=== PATIENT | female | born 1965 | race Caucasian/White ===

== ENCOUNTER → 2019-09-22 12:26 | Outpatient (BNVA) | payer MEDICARE, MEDICAID, SELFPAY | PROVIDERS: Family Provider Nurse Practitioner Family; PCP Nurse Practitioner Family; Visit Provider Nurse Practitioner Family | DX: N39.0 Urinary tract infection, site not specified (principal); M54.16 Radiculopathy, lumbar region | CPT/HCPCS: 81001; 81003; 87086 ==

== ENCOUNTER → 2021-10-16 11:36 | Outpatient (BNVA) | payer MEDICARE, MEDICAID, SELFPAY | PROVIDERS: Family Provider Nurse Practitioner Family; PCP Nurse Practitioner Family; Visit Provider Nurse Practitioner | DX: N39.0 Urinary tract infection, site not specified (principal) | CPT/HCPCS: 81000 ==

== ENCOUNTER → 2022-10-02 16:41 | Outpatient (BNVA) | payer MEDICARE, MEDICAID, SELFPAY | PROVIDERS: Family Provider Nurse Practitioner Family; PCP Nurse Practitioner Family; Visit Provider Nurse Practitioner Family | DX: N39.0 Urinary tract infection, site not specified (principal) | CPT/HCPCS: 81000; 87086 ==

== ENCOUNTER 2023-04-04 11:17 | Observation (INO) | payer MEDICARE, MEDICAID, SELFPAY ==
--- NOTE | 2023-04-02 11:35 | P.ANESASSM_ITS ---
Pre-Anesthetic Assessment Height/Weight: Height 1.57 m Operation Date: 04/04/23 07:00 Proposed Procedures p Anterior colporrhaphy augmented with allograft, posterior colporrhaphy 11605,N81.4,N81.6(Not Applicable) - Negro Isaac MD s Posterior Repair Posterior Colporrhaphy(Not Applicable) - Negro Isaac MD Familial anesthetic complications: none Was Beta Lily taken within 24 hours: N/A Was Clonidine taken within 24 hours: N/A Social Tobacco and No alcohol Exam alert, oriented x 3 and regular rate & rhythm Airway Submandibular: within normal limits Cervical ROM: within normal limits Mallampati: Class II Dentition: full Pulmonary Chronic Obstructive Pulmonary Disease Metabolic Diabetes Mellitus and Morbid Obesity [facility] [place] Lower Back Pain and Osteoarthritis/DJD Anesthetic Plan ASA status: 3 Anesthesia: General Medications/Allergies Home Medications Medication Instructions Recorded Confirmed Last Taken Type duloxetine 60 mg capsule,delayed 60 mg PO .COMPLEX 09/22/19 04/02/23 04/02/23 History release (Cymbalta) insulin detemir U-100 100 unit/mL 100 unit SUBCUT .COMPLEX 09/22/19 04/02/23 04/01/23 History subcutaneous solution (Levemir U-100 Insulin) metformin 1,000 mg tablet,extended 1,000 mg PO BID 09/22/19 04/02/23 04/02/23 History release 24hr pioglitazone 15 mg tablet 15 mg PO DAILY 02/01/22 04/02/23 04/02/23 History fluticasone propionate 50 2 spray intranasal DAILY #16 grams 11/15/22 04/02/23 04/02/23 Rx mcg/actuation nasal spray,suspension (Flonase Allergy Relief) semaglutide 3 mg tablet (Rybelsus) 3 mg PO DAILY 01/17/23 04/02/23 04/02/23 Hist ory benzonatate 100 mg capsule 100 mg PO TID PRN cough #15 caps 02/15/23 04/02/23 Unknown Rx Allergies Allergy/AdvReac Type Severity Reaction Status Date / Time Sulfa (Sulfonamide AdvReac body aches Verified 02/15/23 12:58 Antibiotics) [facility] Anesthesia Surgical History H/O section H/O: hysterectomy Hx of cholecystectomy Status post creation of urethral sling by suprapubic approach Family History Father Hypertension Mother Hypertension Family/Other No problems noted. Denies family history of Colon cancer Ovarian cancer Diabetes Heart disease Breast cancer Uterine cancer Thyroid disease Stroke Female Reproductive History Spontaneous abortions: No Data Anesthesia Cardiac Studies: No Data to Display
[2023-04-04] VITALS (12 sets, daily range): BP systolic 108–174; BP diastolic 64–97; PULSE 67–107; RESP 15–18; TEMP 36.1–36.9; O2SAT 93–98; BMI 28.3
[2023-04-04] MEDS: sodium chloride 0.9% 1,000 ML 30 ML IV (07:48)
[2023-04-04 07:49] LABS: Basophils # 0.1 10^3/uL (0.0-0.1); Basophils % 1.7 %; Eosinophils # 0.3 10^3/uL (0.0-0.8); Eosinophils % 5.6 %; Hematocrit 41.8 % (37.0-47.0); Lymphocytes # 2.2 10^3/uL (0.8-4.8); Lymphocytes % 35.9 %; Mean Corpuscular HGB Conc 33.5 g/dL (30.0-36.0); Mean Corpuscular Hemoglobin 28.7 pg (28.0-34.0); Mean Corpuscular Volume 85.7 fl (81-99); Mean Platelet Volume 8.8 fL (7.4-10.4); Monocytes # 0.5 10^3/uL (0.2-0.9); Monocytes % 7.9 %; Neutrophils # 2.92 10^3/uL (1.8-7.7); Neutrophils % 48.4 %; Nucleated Red Blood Cells % 0 %; Platelet Count 309 10^3/cmm (130-400); Red Blood Count 4.88 10^6/uL (4.1-5.3); Red Cell Distribution Width 13.1 % (12.1-15.1)
[2023-04-04] MEDS: scopolamine 1.5 Patch 1 PATCH TRANSDERMA (07:49)
[2023-04-04 07:58] LABS: Add Urine Microscopic? YES; Bilirubin Urine Neg (Negative); Blood Urine Neg (Negative); Glucose Urine UA Norm (Normal); Ketones Urine Negative (Negative); Leukocyte Esterase Urine 2+ (Negative); Nitrate Urine Negative (Negative); Protein Urine Neg (Negative); Specific Gravity, Urine 1.025 (1.005-1.030); Urine Appearance Clear (CLEAR); Urine Color Yellow (Yellow); Urobilinogen Urine Norm (Negative); pH Urine 6 (5-7)
[2023-04-04 08:06] LABS: Alanine Aminotransferase 16 U/L (0-33); Albumin Level 4.3 g/dL (3.5-5.2); Alkaline Phosphatase 61 U/L (35-105); Anion Gap 13.2 (5-19); Aspartate Amino Transferase 16 U/L (0-32); Blood Urea Nitrogen 11 mg/dL (6-20); Calcium 9.6 mg/dL (8.5-10.5); Carbon Dioxide 28 mmol/L (22-29); Chloride 103 mmol/L (98-107); Globulin 2.5 g/dL (1.3-4.6); Glucose 144 mg/dL (65-115); Osmolality Calculated 292 mOsm/kg (285-295); Potassium 4.2 mmol/L (3.5-5.1); Sodium 140 mmol/L (136-145); Total Bilirubin 0.3 mg/dL (0.15-1.2); Total Protein 6.8 g/dL (6.6-8.7)
[2023-04-04 08:09] LABS: Add Urine Culture? No; Bacteria Urine TRACE /hpf; RBC Urine 0-4 /hpf (0-2); Renal Epithelial Cells Urine 0-4 /hpf; Squamous Epithelial Cell Urine 0-4 /hpf (0-5)
--- NOTE | 2023-04-04 08:50 | W.PM.OPSUD ---
Surgery/Procedure H&P Update DATE OF PROCEDURE: April 04, 2023 DATE H&P PERFORMED: 04/02/23 H&P UPDATE INFORMATION: I have reviewed H&P completed within last 30 days, I have examined patient prior to procedure and No changes to prior documentation PREOP DIAGNOSIS: Cystocele, mixed urinary incontinence PLANNED PROCEDURE: Operation Date: 04/04/23 09:00 Proposed Procedures p Anterior colporrhaphy augmented with allograft, posterior colporrhaphy 23669,N81.4,N81.6(Not Applicable) - Negro Isaac MD s Posterior Repair Posterior Colporrhaphy(Not Applicable) - Negro Isaac MD
[2023-04-04] MEDS: ceFOXitin 2,000 MG in sodium chloride 0.9% (plus) 50 ML 100 MG IV (09:26)
[2023-04-04] MEDS: lidocaine-epi 2% 20 mL INJ INJECTION (10:00)
--- NOTE | 2023-04-04 10:48 | P.ANESUD_ITS ---
Pre-Anesthetic Update Pre-Anesthetic Assessment: Date of Surgery/Procedure: 04/04/23 Preop Laura gnosis: Cystocele, mixed urinary incontinence Proposed Procedure: Operation Date: 04/04/23 09:00 Proposed Procedures p Anterior colporrhaphy augmented with allograft, posterior colporrhaphy 99953,N81.4,N81.6(Not Applicable) - Negro Isaac MD s Posterior Repair Posterior Colporrhaphy(Not Applicable) - Negro Isaac MD Any changes to Pre-Anesthetic Assessment?: No Last Intake: Intake Last Liquid Date 04/03/23 Last Liquid Time 21:00 Last Solid Date 04/03/23 Last Solid Time 21:00 Labs Last 48hrs: Short CBC 04/04/23 Range/Units 07:39 WBC 6.0 (4.0-10.0) 10^3/ uL Hgb 14.0 (11.5-15.3) g/dL Hct 41.8 (37.0-47.0) % MCV 85.7 (81-99) fl Plt Count 309 (130-400) 10^3/c mm Neut % (Auto) 48.4 % Neut # (Auto) 2.92 (1.8-7.7) 10^3/u L BMP 04/04/23 07:39 Sodium 140 Potassium 4.2 Chloride 103 Carbon Dioxide 28 BUN 11 Creatinine 0.6 Glucose 144 H Calcium 9.6 Liver Function 04/04/23 Range/Units 07:39 Total Bilirubin 0.3 (0.15-1.2) mg/dL AST 16 (0-32) U/L ALT 16 (0-33) U/L Alkaline Phosphata se 61 (35-105) U/L Albumin 4.3 (3.5-5.2) g/dL Urine 04/04/23 Range/Units 07:30 Urine Color Yellow (Yellow) Urine Appearance Clear (CLEAR) Urine pH 6 (5-7) Ur Specific Gravit y 1.025 (1.005-1.030) Urine Protein Neg (Negative) Urine Glucose (UA) Norm (Normal) Urine Ketones Negative (Negative) Urine Nitrate Negative (Negative) Urine Bilirubin Neg (Negative) Ur Leukocyte Jeimy ase 2+ H (Negative) Urine RBC 0-4 H (0-2) /hpf Urine WBC 5-10 H (0-5) /hpf Ur Renal Epithelia l Cell 0-4 /hpf Blood Bank 04/04/23 07:39 Blood Type O Negative Rho(D) Type Negative Antibody Screen Negative Vitals: Temperature 97.4 F L 04/04/23 07:25 Temperature Source Temporal Artery S can 04/04/23 07:25 Pulse Rate 67 04/04/23 07:25 Respiratory Rate 16 04/04/23 07:25 Blood Pressure 159/92 04/04/23 07:25 Blood Pressure Kiana n 114 04/04/23 07:25 Pulse Oximetry 98 04/04/23 07:25 Oxygen Delivery Me thod Room Air 04/04/23 07:28 Exam: Pre-Anes Outpt Exam: alert, oriented x 3, clear to auscultation bilaterally and regular rate & rhythm Cardiac Studies: No Data to Display
[2023-04-04] MEDS: estrogens Conjugated Cream 30 gm 1 APPLIC VAGINAL (10:58)
--- NOTE | 2023-04-04 11:06 | PM.OP ---
Operative Report Date of procedure: April 04, 2023 Pre-op diagnosis: Preop Diagnosis Cystocele, mixed urinary incontinence Post-op diagnosis: Same as above Procedure done: Anterior colporrhaphy augmented with allograft. Single incision mid urethral sling. Cystoscopy Surgeon: Negro Isaac MD Estimated blood loss (mL): 25 IV fluids (mL): 1,000 Urine output (mL): 300 Procedure: After obtaining informed consent, the patient was taken to the operating room and placed in the supine position, given general anesthesia, and prepped and draped in sterile fashion. The abdomen, vulva and vagina were prepped and draped in a sterile manner. A time out procedure was performed. The anterior vaginal mucosa beneath the midurethra was infiltrated with 0.5% Marcaine with epinephrine. A vertical midline incision was made beneath the midurethra, nearly 1.5 cm length. Careful submucosal dissection was performed bilaterally up to the interior portion of the inferior pubic ramus. The insertion of adductor longus tendon on the patient?s pubic ramus was identified as reference land preston. Palpated the notch along the internal edge of ischiopubic ramus where the adductor longus tendon and the inferior pubic ramus meet. The Altis single incision sling (SIS) was selected. Then the needle of the SIS inserted aiming at the location of this notch. One of the integrated self-fixating tips place onto the needle by sliding it over the end of the needle. The needle/sling assembly was inserted toward the location of identified reference notch making sure that the flat of the handle is perpendicular to the desired path. The needle was tracked along the posterior surface of the ischiopubic ramus until the midline preston on the mesh is approximately at the midline position under the urethra. The needle was removed and the same was repeated on the contralateral side until the appropriate sling tension under the urethra was achieved ensuring that the mesh lays flat. The needle was removed and vaginal incision was closed in a running interlocking fashion with 2-0 Vicryl. The vaginal mucosa was then injected in the midline with normal saline. The vaginal mucosa was scored in the midline with the Bovie approximately 1 cm medial to the urethral meatus to 1 cm distal to the vaginal cuff/cervix. This vaginal mucosa was then undermined and then incised in the midline with the Metzenbaum scissors. The lateral aspects of the vaginal mucosa were then grasped with the Allis clamps and the vaginal mucosa was then dissected off the underlying fascia with the Metzenbaum scissors. Again, there was noted to be quite a bit of oozing at the incision, which was controlled with cautery. After adequate dissection was performed, bilaterally. A Coloplast allograft was modified at time of application to fit spacea, 3 x 3 cm piece. The Coloplast allograft was placed in front of cystocele ready to be implanted facing the vagina mucosa. Suture is placed at distal end of graft and placed towards vaginal cuff. Final suture is placed on proximal portion of the graft to complete the placement overlying the bladder. Then Interrupted vertical mattress sutures of 0 Vicryl were used to elevate the cystocele superiorly. The excessive vaginal mucosa was then trimmed with the Metzenbaum scissors and the vaginal mucosa was then reapproximated in the running interlocking fashion with 2-0 Vicryl. Then the Palafox catheter was removed and cystoscope was inserted. The bladder was filled with sterile water. Complete evaluation of the bladder mucosa was performed noting no lacerations, dimpling, tears, bleeding of the mucosa or muscular layers. Both ureteral orifices were identified. Prompt excretion of urine from both ureteral orifices was noted. Cystoscope was withdrawn. The Palafox catheter was replaced. Excellent hemostasis was obtained. A vaginal pack is placed overnight as postoperative support for the vaginal tissues after graft placement and closure of vaginal incisions. Sponge, lap, needle, and instrument counts were correct times three. The patient was taken to the recovery room, awake and in stable condition.
[2023-04-04] MEDS: ketorolac 30 mg/mL INJ IVP ×2 (12:32→18:47)
[2023-04-04] MEDS: HYDROcodone-acetaminophen 5-325 mg Tablet PO ×2 (14:20→19:44)
--- NOTE | 2023-04-04 14:52 | ANE.PACU2 ---
Inpatient post-anesthesia follow up: Airway intact: Yes Vital signs: Temperature 97 F Pulse Rate 86 Respiratory Rate 16 Blood Pressure 146/66 Pulse Oximetry 93 Oxygen Delivery Me thod Room Air Oxygen Flow Rate Fraction of Inspir ed Oxygen Hydration adequate: Yes Nausea and vomiting: No Pain level: 2 Mental status: Baseline
[2023-04-04] MEDS: dextrose 5%-lactated ringers 1,000 ML 125 ML IV (16:24)
[2023-04-04] MEDS: metformin XR 500 MG Tablet 1000 MG PO (17:45)
[2023-04-04] MEDS: docusate sodium 100 mg Capsule PO (17:45)
[2023-04-04] MEDS: phenazopyridine 100 mg Tablet 200 MG PO (17:45)
[2023-04-04] MEDS: simethicone 80 mg Chew PO (21:22)
[2023-04-04] MEDS: insulin glargine 100 units/1 mL 50 UNIT SUBCUT (21:42)
[2023-04-05] MEDS: ketorolac 30 mg/mL INJ IVP ×2 (00:42→06:51)
[2023-04-05] MEDS: HYDROcodone-acetaminophen 5-325 mg Tablet PO ×2 (04:58→11:40)
[2023-04-05] MEDS: simethicone 80 mg Chew PO (04:58)
[2023-04-05 05:00] VITALS: BP 128/74; PULSE 82; RESP 16; TEMP 36.5; O2SAT 94
--- NOTE | 2023-04-05 05:06 | PC.NURSE ---
Vaginal packing removed, patient tolerated well, small amount of blood on gauze.
[2023-04-05 05:13] LABS: Hematocrit 33.5 % (37.0-47.0); Hemoglobin 11.4 g/dL (11.5-15.3); Mean Corpuscular Hemoglobin 28.8 pg (28.0-34.0); Mean Corpuscular Volume 84.6 fl (81-99); Mean Platelet Volume 9.2 fL (7.4-10.4); Platelet Count 268 10^3/cmm (130-400); Red Blood Count 3.96 10^6/uL (4.1-5.3); Red Cell Distribution Width 12.8 % (12.1-15.1); White Blood Count 12.9 10^3/uL (4.0-10.0)
[2023-04-05 05:34] LABS: Glucose Point of Care 166 mg/dL (70-110)
[2023-04-05 08:48] VITALS: BP 128/72; PULSE 72; RESP 16; TEMP 36.7; O2SAT 97
[2023-04-05] MEDS: duloxetine 60 mg Capsule PO (08:59)
[2023-04-05] MEDS: metformin XR 500 MG Tablet 1000 MG PO (08:59)
[2023-04-05] MEDS: docusate sodium 100 mg Capsule PO (08:59)
[2023-04-05] MEDS: insulin glargine 100 units/1 mL 50 UNIT SUBCUT (09:10)
--- NOTE | 2023-04-05 11:38 | P.DS_ITS ---
Discharge Providers CUSTOM FRAME ASSEMBLER Date of Admission: 04/04/23 11:17 Date of Discharge: 04/05/23 Attending Provider at Admission: Negro Isaac MD Attending Provider at Discharge: Negro Isaac MD Primary CUSTOM FRAME ASSEMBLER: Negro Isaac MD Primary Care Provider: Wayne Snyder DO Reason for Visit Reason for Visit: N81.6, N81.4 Hospital Course Hospital Course Mrs. Bliss 57-year-old female admitted for planned anterior colporrhaphy augmented with allograft and single incision mid urethral sling. The procedures were performed without complication. Postoperatively overnight observation was uneventful. She is afebrile and hemodynamically stable postoperative day 1. Tolerating diet well. Ambulating without difficulty. PVR was elevated and the patient needs to be discharged home with a Silva catheter. She was instructed to follow-up Sunday at the clinic to discontinue the Silva catheter at that time. She was also counseled regarding pelvic rest for 6 weeks (no sex, no tampons, no vaginal douches). Return to the emergency room if any fever, increased bleeding or pain. Physical Exam Narrative: GA: Alert and oriented ?3. HEENT: WNL. Heart: Regular rate and rhythm. Lungs: Clear to auscultation bilaterally. Abdomen: Bowel sounds present, nontender,. LOCOMOTIVE ENGINEER:Spotting bleeding. Extremities: No edema, no cyanosis, no calves pain. Urinary Catheter Management: Silva: Cath Placed During This Visit: yes, but has since been removed by the nurse Reason for Continuing Indwelling Catheter: Decision to DC Catheter Urinary Catheter Date of Insertion: 04/04/23 Urinary Catheter Time of Insertion: 09:55 Date Urinary Catheter Removed: 04/05/23 Time Urinary Catheter Discontinued: 05:05 History History History 3 Term 3 0 Miscarriages/Ectopic 0 Living Children 3 Discharge Data Studies Completed and Pending Laboratory Results WBC 12.9 10^3/uL (4.0-10.0) H 04/05/23 05:06 RBC 3.96 10^6/uL (4.1-5.3) L 04/05/23 05:06 Hgb 11.4 g/dL (11.5-15.3) L 04/05/23 05:06 Hct 33.5 % (37.0-47.0) L 04/05/23 05:06 MCV 84.6 fl (81-99) 04/05/23 05:06 MCH 28.8 pg (28.0-34.0) 04/05/23 05:06 MCHC 34.0 g/dL (30.0-36.0) 04/05/23 05:06 RDW 12.8 % (12.1-15.1) 04/05/23 05:06 Plt Count 268 10^3/cmm (130-400) 04/05/23 05:06 MPV 9.2 fL (7.4-10.4) 04/05/23 05:06 Neut % (Auto) 48.4 % 04/04/23 07:39 Lymph % (Auto) 35.9 % 04/04/23 07:39 [place] % (Auto) 7.9 % 04/04/23 07:39 Eos % (Auto) 5.6 % 04/04/23 07:39 Baso % (Auto) 1.7 % 04/04/23 07:39 Neut # (Auto) 2.92 10^3/uL (1.8-7.7) 04/04/23 07:39 Lymph # (Auto) 2.2 10^3/uL (0.8-4.8) 04/04/23 07:39 [place] # (Auto) 0.5 10^3/uL (0.2-0.9) 04/04/23 07:39 Eos # (Auto) 0.3 10^3/uL (0.0-0.8) 04/04/23 07:39 Baso # (Auto) 0.1 10^3/uL (0.0-0.1) 04/04/23 07:39 Nucleated RBC % (auto) 0 % 04/04/23 07:39 Nucleated RBCs # 0.0 /100WBC 04/04/23 07:39 Sodium 140 mmol/L (136-145) 04/04/23 07:39 Potassium 4.2 mmol/L (3.5-5.1) 04/04/23 07:39 Chloride 103 mmol/L (98-107) 04/04/23 07:39 Carbon Dioxide 28 mmol/L (22-29) 04/04/23 07:39 Anion Gap 13.2 (5-19) 04/04/23 07:39 BUN 11 mg/dL (6-20) 04/04/23 07:39 Creatinine 0.6 mg/dL (0.5-0.9) 04/04/23 07:39 GFR Calculation 103.0 mL/min (90-130) 04/04/23 07:39 Glucose 144 mg/dL (65-115) H 04/04/23 07:39 POC Glucose 166 mg/dL (70-110) H 04/04/23 07:43 Calculated Osmolality 292 mOsm/kg (285-295) 04/04/23 07:39 Calcium 9.6 mg/dL (8.5-10.5) 04/04/23 07:39 Total Bilirubin 0.3 mg/dL (0.15-1.2) 04/04/23 07:39 AST 16 U/L (0-32) 04/04/23 07:39 ALT 16 U/L (0-33) 04/04/23 07:39 Alkaline Phosphatase 61 U/L (35-105) 04/04/23 07:39 Total Protein 6.8 g/dL (6.6-8.7) 04/04/23 07:39 Albumin 4.3 g/dL (3.5-5.2) 04/04/23 07:39 Globulin 2.5 g/dL (1.3-4.6) 04/04/23 07:39 Urine Color Yellow (Yellow) 04/04/23 07:30 Urine Appearance Clear (CLEAR) 04/04/23 07:30 Urine pH 6 (5-7) 04/04/23 07:30 Ur Specific [place] 1.025 (1.005-1.030) 04/04/23 07:30 Urine Protein Neg (Negative) 04/04/23 07:30 Urine Glucose (UA) Norm (Normal) 04/04/23 07:30 Urine Ketones Negative (Negative) 04/04/23 07:30 Urine Blood Neg (Negative) 04/04/23 07:30 Urine Nitrate Negative (Negative) 04/04/23 07:30 Urine Bilirubin Neg (Negative) 04/04/23 07:30 Urine Urobilinogen Norm mg/dL (Negative) 04/04/23 07:30 Ur Leukocyte Esterase 2+ (Negative) H 04/04/23 07:30 Urine RBC 0-4 /hpf (0-2) H 04/04/23 07:30 Urine WBC 5-10 /hpf (0-5) H 04/04/23 07:30 Ur Squamous Epith Cells 0-4 /hpf (0-5) H 04/04/23 07:30 Ur Renal Epithelial Cell 0-4 /hpf 04/04/23 07:30 Amorphous Sediment Not Reportable 04/04/23 07:30 Urine Bacteria Trace /hpf (NONE) 04/04/23 07:30 Urine Mucus None /hpf 04/04/23 07:30 Blood Type O Negative 04/04/23 07:39 Rho(D) Type Negative 04/04/23 07:39 Antibody Screen Negative 04/04/23 07:39 Vitals Last Vital Signs Temp 98.1 F 04/05/23 08:48 Pulse 72 04/05/23 08:48 Resp 16 04/05/23 08:48 BP 128/72 04/05/23 08:48 Pulse Ox 97 04/05/23 08:48 O2 Del Method Room Air 04/05/23 08:48 Discharge Plan Discharge Patient Disposition: Home Condition: Stable Prescriptions: New hydrocodone-acetaminophen 5-325 mg tablet 1 tab PO Q4H PRN (Reason: pain) Qty: 10 0RF acetaminophen 325 mg capsule 325 mg PO Q4H PRN (Reason: fever or pain) Qty: 60 0RF ibuprofen 800 mg tablet 800 mg PO TID PRN (Reason: pain) Qty: 60 0RF Continued Levemir U-100 Insulin 100 unit/mL solution 100 unit SUBCUT .COMPLEX Rx Instructions: 100 units SUBCUT 60 units daily; metformin 1,000 mg tablet extended release 24hr 1,000 mg PO BID duloxetine [Cymbalta] 60 mg capsule,delayed release(DR/EC) 60 mg PO .COMPLEX Rx Instructions: 60 mg PO daily; pioglitazone 15 mg tablet 15 mg PO DAILY fluticasone propionate [Flonase Allergy Relief] 50 mcg/actuation spray,suspension 2 spray intranasal DAILY Qty: 16 0RF Rx Instructions: administer into each nostril Rybelsus 3 mg tablet 3 mg PO DAILY benzonatate 100 mg capsule 100 mg PO TID PRN (Reason: cough) Qty: 15 0RF Discharge Orders: Discharge Order (Routine); Ordered 04/05/23 Ordered By: Negro Isaac Referrals: Negro Isaac MD [Physician] - 04/18/23 1:30 pm (Patient to see Dr. Isaac on 04/09/23 at 1015am for removal of silva Two week follow up appointment scheduled on 04/18/23 @1:30pm Six week follow up appointment scheduled on 05/24/23 @11:30am ) Discharge Diet: Usual diet Discharge Activity: Limit activity as instructed Patient Instructions: Opioid Safety (DC), Anterior Vaginal Repair (DC), OB Discharge Report, OB Food/Drug Interaction Guide, Opioid Safety, Post Anesthesia Care Activity Restrictions/Additional Instructions: 1. Please call [facility] clinic on next working day to make your post-operative appointment in 2 weeks. 2. Please stay home until you come back to the clinic on first post- hospatilization check up. 3. Please follow instructions on your medications CAREFULLY. 4. If you have abdominal incision, do not cover it unless dressing is necessary because of drainage. OK to shower, but avoid bath. Leave steri-strips until they fall off. If they are still on one week after surgery, you may remove them. 5. If you had vaginal surgery or vaginal repair, Dr. Isaac may instruct you to take SITZ bath. 6. Yellow, blood tinged odorous vaginal discharge is usually normal after hysterectomy or vaginal surgeries. 7. No SEXUAL INTERCOURSE, tampons, or douches until you are completely released from the post-operative care. 8. Avoid constipation by eating right and maybe using some Metamucil or Milk of Magnesia. 9. All prescription refills are given during the working hours. Please do no wait till it runs out. Call the clinic at [phone] before your medication runs out. The clinic will get in touch with your doctor to prescribe medications if necessary. 10. Please remain within 40 mile radius from our hospital because emergencies do happen now and then during the post-operative period. 11. If you have stairs at home, take one step at a time slowly and minimize the number of trips. It helps to stay in one floor for the next few days. No lifting except what you can lift by one hand until you are released from the post-operative care. 12. Driving is discouraged until you are well healed. It may be 3-4 weeks before you feel strong enough to drive. You should be able to turn and look through the rear window without pain and you should be able to push the brake pedal very hard without pain before you drive. No fast rules, but SAFETY should be your primary concern. DO NOT drive if you are on sedating medications such as narcotics. 13. Call the clinic (during working hours) to make urgent appointment or go to the Emergency room, if any of the following occurs: i. Vaginal bleeding becomes heavy, more than a period. ii. Incision becomes red and sore, or drains pus. iii. Your TEMPERATURE is over 100.4F or you have chill. iv. IV site becomes red and swollen (a little ``knot?? is usually OK) v. Persistent nausea and vomiting vi. Persistent constipation or diarrhea vii. Rash or allergic reaction to medications. Discharge Attestations CUSTOM FRAME ASSEMBLER Time Spent in Discharge Care*: greater than 30 min Coding Level of Care Code Acute Code for Chg Fwd Diagnoses
[2023-04-05] MEDS: ibuprofen 800 mg tablet PO (11:40)
[2023-04-05 13:00] VITALS: BP 116/78; PULSE 78; RESP 15; TEMP 37.4; O2SAT 97
== END 2023-04-05 13:01 | disposition home or self-care (01) ==
LOC: OBGYN 11:17
PROVIDERS: Admitting Provider Obstetrics & Gynecology; PCP Family Medicine; Visit Provider Obstetrics & Gynecology
PROC: 0JQC0ZZ Repair Pelvic Region Subcutaneous Tissue and Fascia, Open Approach (ICD-10-PCS; CPT 57240; principal; 2023-04-04 09:00)
PROC: (CPT 57250; 2023-04-04 09:00)
DX: N81.10 Cystocele, unspecified (principal); N39.46 Mixed incontinence; N81.6 Rectocele; J44.9 Chronic obstructive pulmonary disease, unspecified; E11.9 Type 2 diabetes mellitus without complications; Z79.84 Long term (current) use of oral hypoglycemic drugs; Z79.85 Long-term (current) use of injectable non-insulin antidiabetic drugs
CPT/HCPCS: 57240; 57267; 57288; 36415; 36416; 51702; 80053; 81001; 82962; 85025; 85027; 86850; 86900; 96372; C1713; C1762; G0378; J0330; J0694; J1100; J1815; J1885; J2371; J2405; J2704; J2710; J3010; J3490; J7030; J7121

== ENCOUNTER → 2023-06-26 10:18 | Outpatient (BNVA) | payer MEDICARE, MEDICAID, SELFPAY | PROVIDERS: PCP Family Medicine; Visit Provider Nurse Practitioner Family | DX: R39.9 Unspecified symptoms and signs involving the genitourinary system (principal) | CPT/HCPCS: 81000; 87086 ==

== ENCOUNTER → 2023-07-07 10:12 | Outpatient (BNVA) | payer MEDICARE, MEDICAID, SELFPAY | PROVIDERS: PCP Family Medicine; Visit Provider Nurse Practitioner Family | DX: N39.0 Urinary tract infection, site not specified (principal) | CPT/HCPCS: 81000; 87086 ==

== ENCOUNTER → 2023-08-06 11:38 | Outpatient (BNVA) | payer MEDICARE, MEDICAID, SELFPAY | PROVIDERS: PCP Family Medicine; Visit Provider Nurse Practitioner Family | DX: R39.9 Unspecified symptoms and signs involving the genitourinary system (principal) | CPT/HCPCS: 81000; 87086 ==

== ENCOUNTER 2023-08-12 12:37 | Emergency (ER) | payer MEDICARE, MEDICAID, SELFPAY ==
[2023-08-12 12:44] VITALS: BP 153/89; PULSE 79; TEMP 36.8; O2SAT 96; BMI 31.1
[2023-08-12 13:57] VITALS: BP 152/102; PULSE 62; O2SAT 100
--- NOTE | 2023-08-12 13:59 | CTR_ITS ---
PROCEDURE INFORMATION: Exam: CT Abdomen And Pelvis With Contrast Exam date and time: 08/12/2023 2:21 PM Age: 58 years old Clinical indication: Abdominal pain; Generalized; Prior surgery; Surgery date: 6+ months; Surgery type: Bladder sling, hyster; Additional info: Abd pain, flank pain, nausea.No history of trauma or recent surgery is provided. TECHNIQUE: Imaging protocol: Computed tomography of the abdomen and pelvis with contrast. 210image(s) are provided. Radiation optimization: All CT scans at this facility use at least one of these dose optimization techniques: automated exposure control; mA and/or kV adjustment per patient size (includes targeted exams where dose is matched to clinical indication); or iterative reconstruction. Contrast material: OMNI 350; Contrast volume: 100 ml; Contrast route: INTRAVENOUS (IV); Other technique: Axial images are available with sagittal and coronal reconstruction views. Automated dose exposure control is utilized. The DLP is 575.72 REPORTING DATA: Count of CT and Cardiac NM exams in prior 12 months: This patient has received 0 known CTs and 0 known cardiac nuclear medicine studies in the 12 months prior to the current study. COMPARISON: No relevant prior studies available. RADIATION DOSE METRICS: Total DLP (mGy-cm): 575.72 FINDINGS: Lungs: No lobar consolidation is appreciated. There is some ground-glass attenuation for example including 3 mm posterior basal right lower lobe image 3. This could also represent some chronic subpleural scarring as well as some similar appearance laterally. For patients at low risk (minimal or absent history of smoking and of other known risk factors), no routine follow-up is indicated. For patients at high risk (history of smoking or of other known risk factors), consider optional CT Chest at 12 months. (Reference: Lizzteh) Liver: There are some subcentimeter hepatic cystic related changes along with some subtle steatosis type appearance. Gallbladder and bile ducts: Cholecystectomy clips are present. There is some prominence of the bile ducts overall for example including at the distal common bile duct measuring 9 mm in diameter. No radiopaque obstructive calculus is currently appreciated.Distal most, ampullary level evaluation is limited. Pancreas: No pancreatic ductal dilatation or calculus is currently appreciated. Spleen: Unremarkable. Adrenal glands: Unremarkable. Kidneys and ureters: There is homogeneous renal parenchymal enhancement with no radiopaque obstructive calculus or hydronephrosis appreciated. There is some fluid dense simple cystic appearance right midpole of 1 cm for which no further follow-up is indicated. Stomach and bowel: Some aspects of the colon are undistended. This may also be peristaltic related.There is some stool present limiting mucosal detail evaluation.The bowel gas pattern appears nonobstructive. There is a small sliding-type hiatal hernia demonstrated with slight gastroesophageal fold thickening. There are some borderline small bowel loops present overall for example central and left abdomen with an otherwise smooth transitioning and nonobstructive appearance.Consider if there is a history of diarrhea or gastroenteritis. There does however appear to be some subtle bowel within bowel which may be peristaltic related although some transient intussusception could present in this fashion for example series 4, image 24 and series 7, image 25. Appendix: No evidence of appendicitis. Intraperitoneal space: No free air or free fluid collections are appreciated. Vasculature: No abdominal aortic saccular aneurysmal dilatation is appreciated with some chronic atherosclerotic change overall. Lymph nodes: There are subcentimeter predominant para-aortic and mesenteric lymph nodes overall present. Urinary bladder: The bladder contours appear unremarkable overall. Reproductive: There are hysterectomy changes present. Bones/joints: Osseous alignment is maintained.No displaced fracture or dislocation is appreciated. There is some mild chronic appearing lumbar disc degeneration. This contributes to some neural foraminal narrowing with L5-S1 predominance. Soft tissues: No radiopaque foreign body or subcutaneous emphysema is appreciated. Other findings: There is some motion artifact present. CT/CT abdomen pelvis w con* [id number] IMPRESSION: 1. The bowel-gas pattern appears nonobstructive overall. There are some borderline small bowel loops however for example left upper quadrant. There appears to be some subtle bowel within bowel which may be peristaltic although could also be seen with transient intussusception. Consider small bowel series. 2. No fluid collections or acute inflammatory stranding changes are appreciated. 3. There is some slight prominence of the bile ducts overall with history of cholecystectomy. Consider hepatobiliary profile studies. THIS REPORT CONTAINS FINDINGS THAT MAY BE CRITICAL TO PATIENT CARE. The findings were verbally communicated via telephone conference at 3:23 PM CREDENTIALER on 08/12/2023 with SALLIE KIRAN. The findings were acknowledged and understood. REFERENCES: Lizzeth Hannon, et al. Guidelines for Management of Incidental Pulmonary Nodules Detected on CT Images: From the Fleischner Society 2017. Radiology. 2017;284(1):228-243.
--- NOTE | 2023-08-12 14:01 | ED_ITS ---
HPI - Female Genitourinary General: Chief complaint: Urogenital-Female Stated complaint: abd pain,dx UTI Time Seen by Provider: 08/12/23 13:10 History of Present Illness: Patient is a 58-year-old female that presents to the emergency department with concerns for UTI/kidney infection. Patient states in March she underwent a bladder sling with Dr. Isaac. Since that time she has had burning with urination that intermittently radiates into her back. Patient states that she has had 3 diagnosed UTIs and is currently on her third round of antibiotics. She has sought treatment through urgent care all 3 infections. Patient Is currently taking cephalexin 500 mg every 6. She has a history of diabetes as well as bipolar disorder. She states her diabetes and psychiatric history are well-controlled with current medications. She has not started any new medications other than the antibiotics. Patient denies fever, chills. She reports diffuse abdominal discomfort with radiation into bilateral flanks. Reports nausea but no vomiting. No diarrhea. Review of Systems General: Reports: 10 or more systems reviewed and unremarkable except in HPI and below PFSH ED PFSH: Medical History Mixed stress and urge urinary incontinence POP-Q stage 1 rectocele POP-Q stage 3 cystocele Vaginal vault prolapse Surgical History H/O section H/O: hysterectomy (~2005) TISHA performed at [facility] for AUB; ovaries spared. Hx of cholecystectomy S/P anterior colporrhaphy (~04/04/23) anterior colporrhapy augmented with allograft. Single incision mid urethral sling. Cystoscopy performed by Dr. Isaac at [facility]. Status post creation of urethral sling by suprapubic approach Family History Father Hypertension Mother Hypertension Family/Other No problems noted. Denies family history of Colon cancer Ovarian cancer Diabetes Heart disease Breast cancer Uterine cancer Thyroid disease Stroke Female Reproductive History: Spontaneous abortions: No Date of menopause: 09/17/05 Physical Exam Const: COMMON NORMALS: no acute distress, patient oriented x3 and alert GENERAL APPEARANCE: cooperative ORIENTATION/CONSCIOUSNESS: Yes awake, Yes oriented to person, Yes oriented to place and Yes oriented to time HENMT: COMMON NORMALS: normocephalic and atraumatic HEAD & SCALP: normocephalic and atraumatic FACE & SINUS: normal facial exam MOUTH: Normal oral and palatal mucosa present THROAT: posterior oropharynx normal Eye: COMMON NORMALS: Equal, round and reactive pupils present, EOMs intact bilaterally, conjunctivae normal and no scleral icterus GENERAL EYE: appearance normal, both eyes and all related structures ALIGNMENT: Yes alignment normal PERIORBITAL: periorbital findings normal CONJUNCTIVA: Yes conjunctivae normal PUPIL: Yes Equal, round and reactive pupils present Neck/C-Spine: COMMON NORMALS: full ROM GENERAL: Yes normal visual inspection Lymph: LYMPHATIC: no lymphadenopathy noted Chest: COMMONS NORMALS: normal inspection of the chest Breast/axilla inspection: Yes no chest deformity, asymmetry, normal contours, no nodules, masses, tenderness Resp: COMMON NORMALS: normal respiratory effort, No retractions, No use of accessory muscles and clear to auscultation bilaterally EFFORT & INSPECTION: Yes able to speak in complete sentences and Yes symmetric chest movement AUSCULTATION: clear to auscultation bilaterally Cardio: COMMON NORMALS: regular rate, regular rhythm and Peripheral pulses 2+ throughout RATE: regular rate RHYTHM: regular rhythm PERIPHERAL PULSES: Peripheral pulses 2+ throughout GI: COMMON NORMALS: Normal to inspection, nondistended, normoactive bowel sounds present, Soft to palpation, non-tender and No hepatosplenomegaly present INSPECTION: Yes normal to inspection AUSCULTATION: Yes normoactive bowel sounds PALPATION: Yes Soft to palpation and Yes No hepatosplenomegaly present RECTAL EXAM: deferred Extremity: COMMON NORMALS: normal to inspection GENERAL: Yes normal exam except as noted Neuro: COMMON NORMALS: patient oriented x3 SENSORIUM/ORIENTATION: Yes alert, Yes oriented to person, Yes oriented to place and Yes oriented to time CRANIAL NERVES: Yes CN normal except as noted Psych: COMMON NORMALS: mental status grossly normal, Normal thought process present, cooperative, activity/motor behavior normal, denies homicidal ideation and denies suicidal ideation THOUGHT PROCESS: Normal thought process present Skin: COMMON NORMALS: no rashes or lesions noted, no wounds and turgor normal GENERAL SKIN EXAM: no rashes or lesions noted and turgor normal Course Vital Signs: Vital signs: Vital Signs Temperature 98.2 F 08/12/23 12:44 Pulse Rate 62 08/12/23 13:57 Blood Pressure 152/102 08/12/23 13:57 Pulse Oximetry 100 08/12/23 13:57 Oxygen Delivery Me thod Room Air 08/12/23 13:57 MDM - Female Medical Decision Making Patient was evaluated in the emergency department for complaints of suprapubic abdominal pain with diffuse abdominal burning. Pain radiates up into bilateral flanks. Onset of symptoms several months ago but this episode in the last 24 to 48 hours. Differential diagnosis includes UTI, pyelonephritis, aseptic cystitis, gastritis, Patient underwent laboratory and diagnostic evaluation. She did have a UA approximately 6 days ago. She was started on treatment for UTI although the urinalysis was unimpressive. The culture came back 3 days ago and showed no growth. She returns now for ongoing symptoms despite her treatment. Patient underwent a CBC, CMP, urinalysis and CT abdomen pelvis. The CBC revealed no leukocytosis, thrombocytopenia, anemias. The chemistry panel revealed no electrolyte abnormalities, abnormal kidney or liver function. Urinalysis revealed no urine WBCs, bacteria, blood, nitrates or leukoesterase. The CT abdomen pelvis revealed no fluid collections or acute inflammatory stranding. The radiologist did contact me regarding a bowel gas pattern in the left upper quadrant that may represent peristaltic or transient intussusception. The patient has no left upper quadrant pain or TTP. Patient I had a long discussion regarding her symptoms and diagnostic findings. I have talked with patient about following up with PCP as well as Dr. Isaac. She is going to call Sunday for an appointment. We are going to send her home with some Pyridium and Zofran. Will see if the Pyridium helps some of her abdominal cramping. All questions answered Lab Data 08/12/23 14:16 08/12/23 14:16 Radiology Impressions Abdomen/Pelvis CT 08/12/23 13:59 IMPRESSION: 1. The bowel-gas pattern appears nonobstructive overall. There are some borderline small bowel loops however for example left upper quadrant. There appears to be some subtle bowel within bowel which may be peristaltic although could also be seen with transient intussusception. Consider small bowel series. 2. No fluid collections or acute inflammatory stranding changes are appreciated. 3. There is some slight prominence of the bile ducts overall with history of cholecystectomy. Consider hepatobiliary profile studies. THIS REPORT CONTAINS FINDINGS THAT MAY BE CRITICAL TO PATIENT CARE. The findings were verbally communicated via telephone conference at 3:23 PM WAREHOUSE DISTRIBUTION MANAGER on 08/12/2023 with SALLIE KIRAN. The findings were acknowledged and understood. REFERENCES: Lizzeth Hannon et al. Guidelines for Management of Incidental Pulmonary Nodules Detected on CT Images: From the Fleischner Society 2017. Radiology. 2017;284(1):228-243. Laboratory Results WBC 7.80 10^3/uL (3.29-11.43) 08/12/23 14:16 RBC 4.63 10^6/uL (3.85-5.65) 08/12/23 14:16 Hgb 13.20 g/dL (11.27-16.99) 08/12/23 14:16 Hct 39.2 % (36-47) 08/12/23 14:16 MCV 84.7 fl (85-98) L 08/12/23 14:16 MCH 28.5 pg (27-33) 08/12/23 14:16 MCHC 33.7 g/dL (30-55) 08/12/23 14:16 RDW 13.1 % (12.1-15.1) 08/12/23 14:16 Plt Count 314 10^3/cmm (157-399) 08/12/23 14:16 MPV 8.9 fL (7.4-10.4) 08/12/23 14:16 Neut % (Auto) 54.2 % 08/12/23 14:16 Lymph % (Auto) 31.4 % 08/12/23 14:16 [place] % (Auto) 8.3 % 08/12/23 14:16 Eos % (Auto) 4.0 % 08/12/23 14:16 Baso % (Auto) 1.7 % 08/12/23 14:16 Neut # (Auto) 4.23 10^3/uL (1.8-7.7) 08/12/23 14:16 Lymph # (Auto) 2.5 10^3/uL (0.8-4.8) 08/12/23 14:16 [place] # (Auto) 0.7 10^3/uL (0.2-0.9) 08/12/23 14:16 Eos # (Auto) 0.3 10^3/uL (0.0-0.8) 08/12/23 14:16 Baso # (Auto) 0.1 10^3/uL (0.0-0.1) 08/12/23 14:16 Nucleated RBC % (auto) 0 % 08/12/23 14:16 Nucleated RBCs # 0.0 /100WBC 08/12/23 14:16 Sodium 138 mmol/L (136-145) 08/12/23 14:16 Potassium 4.4 mmol/L (3.5-5.1) 08/12/23 14:16 Chloride 102 mmol/L (98-107) 08/12/23 14:16 Carbon Dioxide 27 mmol/L (22-29) 08/12/23 14:16 Anion Gap 13.4 (5-19) 08/12/23 14:16 BUN 10 mg/dL (6-20) 08/12/23 14:16 Creatinine 0.7 mg/dL (0.5-0.9) 08/12/23 14:16 GFR Calculation 85.9 mL/min (90-130) L 08/12/23 14:16 Glucose 113 mg/dL (65-115) 08/12/23 14:16 Calculated Osmolality 286 mOsm/kg (285-295) 08/12/23 14:16 Calcium 9.8 mg/dL (8.5-10.5) 08/12/23 14:16 Urine Color Yellow (Yellow) 08/12/23 14:16 Urine Appearance Clear (CLEAR) 08/12/23 14:16 Urine pH 5 (5-7) 08/12/23 14:16 Ur Specific [place] 1.015 (1.005-1.030) 08/12/23 14:16 Urine Protein Neg (Negative) 08/12/23 14:16 Urine Glucose (UA) Norm (Normal) 08/12/23 14:16 Urine Ketones Negative (Negative) 08/12/23 14:16 Urine Blood Neg (Negative) 08/12/23 14:16 Urine Nitrate Negative (Negative) 08/12/23 14:16 Urine Bilirubin Neg (Negative) 08/12/23 14:16 Urine Urobilinogen Norm mg/dL (Negative) 08/12/23 14:16 Ur Leukocyte Esterase Negative (Negative) 08/12/23 14:16 All radiology interpretation(s) finalized by discharge Discharge Plan Discharge Patient Disposition: Home Clinical Impression: Abdominal pain, Acute flank pain Condition: Stable Prescriptions: New ondansetron 4 mg tablet,disintegrating 4 mg PO Q8H 5 Days Qty: 15 0RF phenazopyridine [Pyridium] 100 mg tablet 100 mg PO TID PRN (Reason: pain) Qty: 20 0RF No Action Levemir U-100 Insulin 100 unit/mL solution 100 unit SUBCUT .COMPLEX Rx Instructions: PER SLIDING SCALE TWICE DAILY metformin 1,000 mg tablet extended release 24hr 1,000 mg PO BID duloxetine [Cymbalta] 60 mg capsule,delayed release(DR/EC) 60 mg PO DAILY fluticasone propionate [Flonase Allergy Relief] 50 mcg/actuation spray,suspension 2 spray intranasal DAILY Qty: 16 0RF Rx Instructions: administer into each nostril Rybelsus 3 mg tablet 3 mg PO DAILY cephalexin 500 mg capsule 500 mg PO Q6H 7 Days Qty: 28 0RF gabapentin 600 mg tablet 600 mg PO TID trazodone 50 mg tablet 50 - 100 mg PO BEDTIME tizanidine 4 mg tablet 4 mg PO BID PRN (Reason: PAIN OR SPASM) clopidogrel 75 mg tablet 75 mg PO DAILY spironolactone 25 mg tablet 25 mg PO DAILY simvastatin 40 mg tablet 40 mg PO BEDTIME pioglitazone 30 mg tablet 30 mg PO DAILY divalproex 250 mg tablet extended release 24 hr 750 mg PO BID ibuprofen 800 mg tablet 800 mg PO TID PRN (Reason: pain) Qty: 60 0RF acetaminophen 325 mg capsule 325 mg PO Q4H PRN (Reason: fever or pain) Qty: 60 0RF Discharge Orders: Discharge ED (Routine); Ordered 08/12/23 Ordered By: Sallie Bustillos [facility] Referrals: Wayne Snyder DO [Primary Care Provider] - Discharge Diet: Advance as tolerated Discharge Activity: Resume usual activity Patient Instructions: Abdominal Pain (ED), Pain Management Activity Restrictions/Additional Instructions: Please call Dr. Isaac and your primary care doctor to arrange follow-up Please return to the emergency department for new, concerning, worsening symptoms Please follow-up with your primary care doctor regarding the possible need for a small bowel series regarding the CT findings. Coding Level of Care Code ED Electrical Technician for Jazlyn Phillip
[2023-08-12] MEDS: sodium chloride 0.9% 500 ML IV (14:13)
[2023-08-12] MEDS: iohexol 350 mg/mL 500 mL Btl (per mL) IV (14:23)
[2023-08-12 14:24] LABS: Add Urine Microscopic? NO; Charge for UA Resulting for Rev
[2023-08-12 14:26] LABS: Bilirubin Urine Neg (Negative); Blood Urine Neg (Negative); Glucose Urine UA Norm (Normal); Ketones Urine Negative (Negative); Nitrate Urine Negative (Negative); Protein Urine Neg (Negative); Specific Gravity, Urine 1.015 (1.005-1.030); Urine Appearance Clear (CLEAR); Urine Color Yellow (Yellow); pH Urine 5 (5-7)
[2023-08-12 14:27] LABS: Leukocyte Esterase Urine Negative (Negative); Urobilinogen Urine Norm (Negative)
[2023-08-12 14:28] LABS: Basophils # 0.1 10^3/uL (0.0-0.1); Basophils % 1.7 %; Eosinophils # 0.3 10^3/uL (0.0-0.8); Hematocrit 39.2 % (36-47); Lymphocytes # 2.5 10^3/uL (0.8-4.8); Lymphocytes % 31.4 %; Mean Corpuscular HGB Conc 33.7 g/dL (30-55); Mean Corpuscular Hemoglobin 28.5 pg (27-33); Mean Corpuscular Volume 84.7 fl (85-98); Mean Platelet Volume 8.9 fL (7.4-10.4); Monocytes # 0.7 10^3/uL (0.2-0.9); Monocytes % 8.3 %; Neutrophils # 4.23 10^3/uL (1.8-7.7); Neutrophils % 54.2 %; Nucleated Red Blood Cells % 0 %; Platelet Count 314 10^3/cmm (157-399); Red Blood Count 4.63 10^6/uL (3.85-5.65); Red Cell Distribution Width 13.1 % (12.1-15.1)
[2023-08-12 14:45] LABS: Anion Gap 13.4 (5-19); Blood Urea Nitrogen 10 mg/dL (6-20); Calcium 9.8 mg/dL (8.5-10.5); Carbon Dioxide 27 mmol/L (22-29); Chloride 102 mmol/L (98-107); Glomerular Filtration Rate 85.9 mL/min (90-130); Glucose 113 mg/dL (65-115); Osmolality Calculated 286 mOsm/kg (285-295); Potassium 4.4 mmol/L (3.5-5.1); Sodium 138 mmol/L (136-145)
[2023-08-12] MEDS: ondansetron 2 mg/ML SDV 2 mL 4 MG IVP (15:54)
[2023-08-12] MEDS: ketorolac 30 mg/mL INJ IVP (15:54)
== END 2023-08-12 16:27 | disposition home or self-care (01) ==
PROVIDERS: Emergency Provider Nurse Practitioner; PCP Family Medicine
DX: R10.30 Lower abdominal pain, unspecified (principal); Z79.02 Long term (current) use of antithrombotics/antiplatelets; Z79.84 Long term (current) use of oral hypoglycemic drugs; Z79.4 Long term (current) use of insulin
CPT/HCPCS: 74177; 80048; 81003; 85025; 96374; 96375; 99285; J1885; J2405; J7040; Q9967